=== PATIENT | male | born 1945 | race Caucasian/White ===

== ENCOUNTER → 2017-02-06 | Outpatient (CLI) | payer MEDICARE, BC ==
--- NOTE | 2017-02-06 12:06 | RAD ---
MRI Cervical Spine Without Contrast History:NECK PAIN AND STIFFNESS Technique: Multiplanar, multi sequential noncontrast MR imaging was performed of the cervical spine. Comparison: None Findings: There is motion degradation. Cervical cord caliber is within normal limits without convincing focal signal abnormality allowing for artifact. There is no significant abnormality of the cervical medullary junction. Minimal edema of the posterior superior endplate of C7 is probably reactive/degenerative in etiology. Cervical vertebral body stature and AP alignment are adequate. There is straightening of cervical spine. There is moderate degenerative disc disease C6-7, minimally at C5-6. C2-C3: Neural foramina and spinal canal are adequate. C3-C4: Neural foramina and spinal canal are adequate. There is mild left facet hypertrophic change. C4-C5: There is fairly severe left facet degenerative change. There is minimal posterior bulge. Central canal is minimally narrowed to approximately 9 mm. Right neural foramen is adequate, likely at least mild narrowing of the left neural foramen. C5-C6: There is minimal disc osteophyte complex and bulge. There is buckling of the ligamentum flavum. Central canal is narrowed to 7 to 8 mm. There is uncovertebral degenerative change somewhat greater on the right. There is bilateral facet degenerative change. Accurate evaluation of neural foramina somewhat limited due to motion, likely moderate left and moderate to severe right neural foramina compromise. C6-C7: There is disc osteophyte complex and bulge and buckling of the ligamentum flavum. Central canal is narrowed to approximately 7 to 8 mm. There is bilateral facet degenerative change, also uncovertebral degenerative change. There is likely severe left and moderate to severe right neural foramina compromise. C7-T1: Spinal canal is adequate. There is left uncovertebral degenerative change, minimal narrowing of the left neural foramen. Right neural foramen is adequate. Impression: 1. There is spinal stenosis to 7-8 mm at C5-6 and C6-7, to lesser degree at C4-5. 2. There is suspected neural foramina compromise as stated due to facet and uncovertebral degenerative change greatest bilaterally at C5-6 and C6-7. 3. There is moderate degenerative disc disease C6-7, to lesser degree at C5-C6. There is mild spondylosis at the same levels. Electronically signed by: Naveed Ramirez MD (02/06/2017 12:03 PM) [id number]
--- NOTE | 2017-02-06 12:31 | RAD ---
MRI Lumbar Spine without contrast History: Low back pain with stiffness, left hip pain Technique: Multiplanar, multi sequential noncontrast MR imaging was performed of the lumbar spine. Contrast: None Comparison: None Findings: Lumbar vertebral body stature and AP alignment are maintained. Conus terminates at L1. There is no significant marrow edema. There is mild degenerative disc disease L3-4 and L4-5, mild disc desiccation L2-3. There is susceptibility artifact in the region of the left iliac bone due to hardware. L2-L3: There is mild buckling of the ligamentum flavum. There is minimal disc osteophyte complex more eccentric to the inferior neural foramina. There is very minimal narrowing of the inferior distal right neural foramen, left neural foramen adequate. Spinal canal is overall adequate. L3-L4: There is moderate buckling of the ligamentum flavum. There is mild posterior narrowing of the right neural foramen, left neural foramen adequate. There is overall mild spinal stenosis. L4-L5: There is moderate buckling of the ligamentum flavum, minimal facet degenerative change. There is minimal disc osteophyte complex. There is moderate to severe spinal stenosis, limited preserved subarachnoid space. There is lateral recess stenosis bilaterally. Neural foramina are overall adequate. L5-S1: There is mild facet hypertrophic change, minimal buckling of the ligamentum flavum. Spinal canal is adequate. There is minimal posterior narrowing of the right neural foramen, left neural foramen adequate. Impression: 1. There is moderate to severe spinal stenosis L4-5 primarily from posteriorly due to buckling of the ligamentum flavum and facet degenerative change. There is mild spinal stenosis L3-4. 2. There is mild degenerative disc disease L3-4 and L4-5, minimal disc desiccation L2-3. Electronically signed by: Naveed Ramirez MD (02/06/2017 12:27 PM) [email or web address]
== END | disposition home or self-care (01) ==
LOC: MRI 10:27
PROVIDERS: ATTEND Pain Medicine Pain Medicine
DX: M48.02 Spinal stenosis, cervical region (principal); M50.323 Other cervical disc degeneration at C6-C7 level; M50.322 Other cervical disc degeneration at C5-C6 level; M51.16 Intervertebral disc disorders with radiculopathy, lumbar region; M48.06 Spinal stenosis, lumbar region
CPT/HCPCS: 72141; 72148

== ENCOUNTER → 2017-03-28 | Outpatient (CLI) | payer MEDICARE, BC ==
--- NOTE | 2017-03-28 16:01 | [facility] ---
MR of the left shoulder Indication: Chronic pain with decreased range of motion. Technique: Standard multiplanar sequences are obtained. Findings: Acromioclavicular joint: Mildly degenerative, with small undersurface osteophytes. Rotator cuff: Full-thickness tear of the anterior supraspinatus tendon measures about 1 cm AP diameter with undersurface tearing through the remaining supraspinatus and infraspinatus tendon. No significant retraction. Subscapularis tendinosis without a measurable gap or high-grade tear. Glenohumeral cartilage: Mild chondromalacia. Fluid: Trace fluid. Labrum: Tear of the superior labrum. Biceps tendon: Partial tearing and tendinosis. Slight medial subluxation, perched over the lesser tuberosity. Bones: Intraosseous cyst at the lesser tuberosity and greater tuberosity. Soft tissue: No acute findings. Impression: 1. Full-thickness tear of the anterior supraspinatus tendon, with deep undersurface tearing posteriorly. 2. Superior labral tear. 3. Biceps tendinosis and partial tearing with slight medial subluxation. Electronically signed by: Simon Tracy MD (03/28/2017 3:58 PM) [id number]
== END | disposition home or self-care (01) ==
LOC: KCIC MRI 13:44
PROVIDERS: ATTEND Nurse Practitioner Family
DX: S43.432A Superior glenoid labrum lesion of left shoulder, initial encounter (principal); M94.212 Chondromalacia, left shoulder; X58.XXXA Exposure to other specified factors, initial encounter; Y93.89 Activity, other specified; Y92.89 Other specified places as the place of occurrence of the external cause; Y99.8 Other external cause status
CPT/HCPCS: 73221